=== PATIENT | male | born 1970 | race Caucasian/White ===

== ENCOUNTER 2017-08-13 10:56 | Emergency (ER) | payer BC ==
[~2017-08-13] VITALS: Ht 167.6 cm; Wt 103.0 kg
[~2017-08-13 10:56] MED LIST: BACTROBAN2 % EX; CIPRO XR500 MG PO; CIPROFLOXACIN500 M1 PO; FLAGYL500 MG PO; LORTAB 7.5 PO; METRONIDAZOL500 MG PO; PERCOCET 5/325M1 TAB PO
[2017-08-13 11:33] LABS: IMMATURE GRANULOCYTES 0.3 % (0.0-1.0); MEAN CELL VOLUME 86.6 fL CALC (80.0-100.0); MEAN CORPUSCULAR HGB 30.7 pG CALC (26.0-32.0); MEAN CORPUSCULAR HGB CONC 35.5 g/L CALC (32.0-36.0); NEUT# 8.03 thou/uL (1.82-7.42); RED BLOOD COUNT 5.8 mill/uL (4.70-6.10); RED CELL DISTRI WIDTH 12.6 % (11.5-15.5)
[2017-08-13 11:43] LABS: HEMATOCRIT 50.2 % (39.0-50.0); HEMOGLOBIN 17.8 g/dl (14.0-18.0)
[2017-08-13 12:08] LABS: ALKALINE PHOSPHATASE 87 u/l (38-126); ANION GAP 17 (6-22 (CALC)); BILIRUBIN, TOTAL 1.1 mg/dL (0.0-1.4); BUN 14 mg/dL (9-20); BUN/CREATININE RATIO 17 (12-20 (CALC)); CARBON DIOXIDE 23 mmol/l (22-30); CHLORIDE 103 mmol/l (95-108); CREATININE 0.8 mg/dL (0.7-1.3); GFR > 60 ML/MIN (>=60 (CALC)); GFR FOR AFR.AMER. > 60 ML/MIN (>=60 (CALC)); POTASSIUM 3.9 mmol/l (3.5-5.1); SGOT/AST 25 u/l (17-59); SGPT/ALT 55 u/l (21-72); SODIUM 140 mmol/l (137-146); TOTAL PROTEIN 7.7 g/dL (6.3-8.2)
[2017-08-13 12:10] LABS: ALBUMIN 4.6 g/dL (3.2-5.0)
[2017-08-13 12:58] LABS: URINE BLOOD DIPSTICK NEGATIVE (NEGATIVE); URINE GLUCOSE - DIPSTICK NEGATIVE (NEGATIVE); URINE KETONE TRACE mg/dL (NEGATIVE); URINE LEUK ESTERASE NEGATIVE (NEGATIVE); URINE NITRITE - DIPSTICK NEGATIVE (Negative); URINE PROTEIN - DIPSTICK TRACE mg/dL (NEG-TRACE); URINE SPECIFIC GRAVITY 1.015
[2017-08-13 13:00] LABS: URINE BILIRUBIN - DIPSTICK SMALL (NEGATIVE); URINE CLARITY CLEAR; URINE COLOR DK. YELLOW
[2017-08-13 13:14] VITALS: BP 118/75
[2017-08-13] MEDS ORDERED: PERCOCET 5/321 COMBO PO (13:26)
[2017-08-13] MEDS ORDERED: IBUPROFEN600 MG PO (13:26)
[2017-08-13] MEDS ORDERED: LEVAQUIN750 MG PO (13:26)
[2017-08-13] MEDS ORDERED: ORPHENADRINE100 MG PO (13:26)
== END 2017-08-13 13:42 | disposition home or self-care (01) | DRG 551 ==
LOC: ED 10:56
DX: M54.5 Low back pain (principal); M54.6 Pain in thoracic spine; J18.9 Pneumonia, unspecified organism

== ENCOUNTER 2017-09-11 19:21 | Emergency (ER) | payer BC ==
[~2017-09-11] VITALS: Ht 167.6 cm; Wt 95.8 kg
[~2017-09-11 19:21] MED LIST changes: +IBUPROFEN600 MG PO; +LEVAQUIN750 MG PO; +ORPHENADRINE100 MG PO; +PERCOCET 5/321 COMBO PO
[2017-09-11 19:36] VITALS: BP 116/76
[2017-09-11] MEDS ORDERED: AMOXICILLIN500 MG PO ×2 (20:41→20:55)
[2017-09-11] MEDS ORDERED: ULTRAM50 M1 PO (20:41)
== END 2017-09-11 20:54 | disposition home or self-care (01) | DRG 605 ==
LOC: ED 19:21
PROC: 0HQGXZZ Repair Left Hand Skin, External Approach (ICD-10-PCS; principal; 2017-09-11)
PROC: 2W3KX1Z Immobilization of Left Finger using Splint (ICD-10-PCS; 2017-09-11)
DX: S61.217A Laceration without foreign body of left little finger without damage to nail, initial encounter (principal); W31.1XXA Contact with metalworking machines, initial encounter; Y93.H3 Activity, building and construction; Y92.007 Garden or yard of unspecified non-institutional (private) residence as the place of occurrence of the external cause

== ENCOUNTER 2018-09-09 20:15 | Emergency (ER) | payer BC ==
[~2018-09-09] VITALS: Ht 167.6 cm; Wt 100.0 kg
[~2018-09-09 20:15] MED LIST changes: +AMOXICILLIN500 MG PO; +ULTRAM50 M1 PO
[2018-09-09 21:00] LABS: HEMATOCRIT 49.3 % (39.0-50.0); HEMOGLOBIN 17.5 g/dl (14.0-18.0); IMMATURE GRANULOCYTES 0.3 % (0.0-5.0); MEAN CELL VOLUME 85.7 fL CALC (80.0-100.0); MEAN CORPUSCULAR HGB 30.4 pG CALC (26.0-32.0); MEAN CORPUSCULAR HGB CONC 35.5 g/L CALC (32.0-36.0); NEUT# 7.34 thou/uL (1.82-7.42); RED BLOOD COUNT 5.75 mill/uL (4.70-6.10); RED CELL DISTRI WIDTH 12.4 % (11.5-15.5)
[2018-09-09 21:19] LABS: ALBUMIN 4.7 g/dL (3.2-5.0); ALKALINE PHOSPHATASE 73 u/l (38-126); AMYLASE 49 u/l (30-110); ANION GAP 16 (6-22 (CALC)); BILIRUBIN, TOTAL 1.1 mg/dL (0.0-1.4); BUN 15 mg/dL (9-20); BUN/CREATININE RATIO 18 (12-20 (CALC)); CARBON DIOXIDE 26 mmol/l (22-30); CHLORIDE 104 mmol/l (95-108); CREATININE 0.9 mg/dL (0.7-1.3); GFR > 60 ML/MIN (>=60 (CALC)); GFR FOR AFR.AMER. > 60 ML/MIN (>=60 (CALC)); LIPASE 91 u/l (23-300); POTASSIUM 3.8 mmol/l (3.5-5.1); SGOT/AST 25 u/l (17-59); SODIUM 142 mmol/l (137-146); TOTAL PROTEIN 7.4 g/dL (6.3-8.2)
[2018-09-09 21:53] LABS: URINE BILIRUBIN - DIPSTICK NEGATIVE (NEGATIVE); URINE BLOOD DIPSTICK NEGATIVE (NEGATIVE); URINE COLOR YELLOW; URINE GLUCOSE - DIPSTICK NEGATIVE (NEGATIVE); URINE KETONE NEGATIVE (NEGATIVE); URINE LEUK ESTERASE NEGATIVE (NEGATIVE); URINE NITRITE - DIPSTICK NEGATIVE (Negative); URINE PROTEIN - DIPSTICK TRACE mg/dL (NEG-TRACE); URINE SPECIFIC GRAVITY >=1.030
[2018-09-09] MEDS ORDERED: ULTRAM50 M1 PO (22:17)
[2018-09-09 22:45] VITALS: BP 122/62
== END 2018-09-09 22:50 | disposition home or self-care (01) | DRG 392 ==
LOC: ED 20:15
PROVIDERS: Emergency Medicine
DX: R10.30 Lower abdominal pain, unspecified (principal); F17.290 Nicotine dependence, other tobacco product, uncomplicated
CPT/HCPCS: Q9967

== ENCOUNTER 2019-02-22 | Emergency (ER) | payer BC ==
[2019-02-22] MEDS ORDERED: MEDDOSEPAK PO (13:52)
[2019-02-22] MEDS ORDERED: ZITHROMAX500 MG PO (13:52)
[2019-02-22] MEDS ORDERED: VENTOLIN HFA IN (13:52)
== END 2019-02-22 14:00 | disposition home or self-care (01) | DRG 203 ==
DX: J40 Bronchitis, not specified as acute or chronic (principal); J32.9 Chronic sinusitis, unspecified; F17.290 Nicotine dependence, other tobacco product, uncomplicated

== ENCOUNTER 2023-08-14 08:09 | Emergency (ER) | payer SELFPAY ==
[2023-08-14] VITALS (7 sets, daily range): BP systolic 88–117; BP diastolic 58–75
[~2023-08-14] VITALS: Ht 172.7 cm; Wt 77.1 kg
[~2023-08-14 08:09] MED LIST changes: +MEDDOSEPAK PO; +VENTOLIN HFA IN; +ZITHROMAX500 MG PO
[2023-08-14 08:33] LABS: BASO% 0.2 % (0-3); EOS% 0.7 % (0-8); HEMATOCRIT 47.6 % (39.0-50.0); HEMOGLOBIN 16.1 g/dl (14.0-18.0); IMMATURE GRANULOCYTES 0.1 % (0.0-5.0); LYMPH% 11.9 % (15-41); MEAN CELL VOLUME 87.2 fL CALC (80.0-100.0); MEAN CORPUSCULAR HGB 29.5 pG CALC (26.0-32.0); MEAN CORPUSCULAR HGB CONC 33.8 g/dL CAL (32.0-36.0); MONO% 5.7 % (2-13); NEUT# 13.01 thou/uL (1.82-7.42); NEUT% 81.4 % (42-76); RED BLOOD COUNT 5.46 mill/uL (4.70-6.10); RED CELL DISTRI WIDTH 12.7 % (11.5-15.5)
[2023-08-14 08:42] LABS: URINE BILIRUBIN - DIPSTICK Negative (NEGATIVE); URINE BLOOD DIPSTICK Moderate (NEGATIVE); URINE GLUCOSE - DIPSTICK Negative (NEGATIVE); URINE KETONE Negative (NEGATIVE); URINE NITRITE - DIPSTICK Negative (Negative); URINE PH 8.5 (4.5-8.0); URINE PROTEIN - DIPSTICK 100 mg/dL (NEG-TRACE)
[2023-08-14 08:45] LABS: URINE COLOR Dark yellow; URINE LEUK ESTERASE Moderate (NEGATIVE)
[2023-08-14 08:49] LABS: ALBUMIN 4.7 g/dL (3.2-5.0); BILIRUBIN, TOTAL 0.9 mg/dL (0.2-1.3); CREATININE 0.7 mg/dL (0.7-1.3); POTASSIUM 4.5 mmol/l (3.5-5.1); TOTAL PROTEIN 7.6 g/dL (6.3-8.2)
[2023-08-14] MEDS ORDERED: SODIUM CHLORIDE 0.9% 1,000 ML IV ONE (08:50)
[2023-08-14] MEDS ORDERED: KETOROLAC TROMETHAMINE 30 MG/ML SDV IV ONE (08:50)
[2023-08-14 08:59] LABS: URINE BACTERIA FEW hpf; URINE RBC 50-100 RBC/hpf (0-5); URINE WBC 20-50 WBC/hpf (0-5)
[2023-08-14] MEDS ORDERED: CEFDINIR300 MG PO (12:05)
[2023-08-14] MEDS ORDERED: ZPAK PO (12:05)
== END 2023-08-14 12:21 | disposition home or self-care (01) | DRG 689 ==
LOC: ED 08:09
PROVIDERS: Family Medicine
DX: N39.0 Urinary tract infection, site not specified (principal); J18.1 Lobar pneumonia, unspecified organism; B96.20 Unspecified Escherichia coli [E. coli] as the cause of diseases classified elsewhere; R31.9 Hematuria, unspecified; F17.200 Nicotine dependence, unspecified, uncomplicated

== ENCOUNTER 2024-02-25 08:20 | Emergency (ER) | payer SELFPAY ==
[~2024-02-25] VITALS: Ht 172.7 cm; Wt 81.0 kg
[~2024-02-25 08:20] MED LIST changes: +CEFDINIR300 MG PO; +ZPAK PO
[2024-02-25 08:35] VITALS: BP 104/77
[2024-02-25] MEDS ORDERED: LIDOCAINE 4 % PATCH TD ONE (08:35)
[2024-02-25] MEDS ORDERED: ORPHENADRINE CITRATE 30 MG/ML AMP IM ONE (08:35)
[2024-02-25] MEDS ORDERED: KETOROLAC TROMETHAMINE 30 MG/ML SDV IM ONE (08:35)
[2024-02-25] MEDS ORDERED: oxyCODONE 5MG/ ACETAMINOPHEN 325MG TAB PO ONE ×2 (08:35→11:50)
[2024-02-25 10:00] VITALS: BP 97/47
[2024-02-25 10:30] VITALS: BP 109/68
[2024-02-25 11:00] VITALS: BP 113/76
[2024-02-25 11:30] VITALS: BP 103/66
[2024-02-25] MEDS ORDERED: LIDOCARE ARM/NECK4 % TD (11:39)
[2024-02-25] MEDS ORDERED: IBUPROFEN600 MG PO ×2 (11:39→11:43)
[2024-02-25] MEDS ORDERED: METHOCARBAMOL750 MG PO (11:39)
[2024-02-25] MEDS ORDERED: PERCOCET 5/325M1 TAB PO ×2 (11:39→11:44)
[2024-02-25] MEDS ORDERED: ASPERCREME LIDOCA41 TD (11:43)
[2024-02-25 12:00] VITALS: BP 112/82
== END 2024-02-25 12:00 | disposition home or self-care (01) | DRG 552 ==
LOC: ED 08:20
DX: M54.40 Lumbago with sciatica, unspecified side (principal); F17.200 Nicotine dependence, unspecified, uncomplicated
CPT/HCPCS: J1100; J2360